=== PATIENT | female | born 1965 | race Caucasian/White ===

== ENCOUNTER 2016-07-29 06:40 | Emergency (ER) | payer MEDICAID, OTHER ==
[~2016-07-29] VITALS: Ht 160 cm; Wt 75.0 kg
[2016-07-29 06:50] VITALS: Ht 160 cm; Wt 75.0 kg
[2016-07-29] MEDS ORDERED: NAPR-260 PO (07:22)
--- NOTE | 2016-07-29 07:42 | ERD ---
ER Documentation Chief Complaint Date/Time DATE: 07/29/16 TIME: 07:40 Chief Complaint rt hand and fingers hurting no injuries noted HPI 50-year-old female presents with right fourth and fifth digit pain approximately 1 month. She describes as achy, intermittent and worse at the end of the day. 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 She denies any fevers, chills. No weakness associated. ROS All systems reviewed and are negative except as per history of present illness. Medications Home Meds Active Scripts Naproxen* (Naprosyn*) 500 Mg Tablet, 500 MG PO BID, #60 TAB Prov:BAM MCGEE PA-C 07/29/16 PMhx/Soc Medical and Surgical Hx: pt denies Medical Hx, pt denies Surgical Hx Hx Alcohol Use: No Hx Substance Use: No Hx Tobacco Use: No Physical Exam Vitals Vital Signs Date Time Temp Pulse Resp B/P Pulse Ox O2 Delivery O2 Flow Rate FiO2 07/29/16 06:50 97.7 77 18 129/73 100 Physical Exam General: Well-developed, well-nourished. The patient appears in no acute distress. HEENT: Head is normocephalic, atraumatic. No scleral icterus. Neck: Supple. Nontender. Lungs: Clear to auscultation. Normal air movement. Heart: Regular rate and rhythm. S1 and S2 are normal. No murmurs, gallops, or rubs. Abdomen: Nondistended. Extremities: Right wrist is atraumatic, there are no bony deformities to the radial ulnar aspect, no snuffbox tenderness, radial, ulnar, median nerve intact , radial pulses 2+ bilaterally, capillary refill less than 2 seconds. Full range of motion at DIP, PIP and MCP joint of all digits of the right hand. There is no erythema, warmth. Right elbow is unremarkable. Neurologic: Alert and oriented 3. No focal deficits. Normal speech and gait. Skin: Normal turgor. No rash or lesions. Procedures/MDM ER course: Patient's right hand was placed in a Velcro wrist splint. MDM: 50-year-old female presents with right fourth and fifth digit pain, patient 's pain is localized however she does not have any symptoms at this time. I suspect this is a neuropathy, perhaps ulnar given the location. Patient does have a history of previous carpal tunnel as well. Ulnar neuropathy was considered given the location. She does not show any signs of fracture, infection, cellulitis, tendon injury, neuropraxia. She is advised to take NSAIDs, use a splint, if symptoms do not improve that she may speak to her primary care physician regarding physical therapy. Patient's blood pressure was elevated (>120/80) but appears stable without evidence of hypertension emergency or urgency. The patient was counseled about the risks of hypertension and urged to pursue outpatient monitoring and therapy within a week with their primary care physician. Departure Diagnosis: Primary Impression: Pain of hand Condition: Good Patient Instructions: Neuropathy, Peripheral Referrals: COMMUNITY CLINICS YOU HAVE RECEIVED A MEDICAL SCREENING EXAM AND THE RESULTS INDICATE THAT YOU DO NOT HAVE A CONDITION THAT REQUIRES URGENT TREATMENT IN THE EMERGENCY DEPARTMENT. FURTHER EVALUATION AND TREATMENT OF YOUR CONDITION CAN WAIT UNTIL YOU ARE SEEN IN YOUR DOCTORS OFFICE WITHIN THE NEXT 1-2 DAYS. IT IS YOUR RESPONSIBILITY TO MAKE AN APPOINTMENT FOR FOLOW-UP CARE. IF YOU HAVE A PRIMARY DOCTOR --you should call your primary doctor and schedule an appointment IF YOU DO NOT HAVE A PRIMARY DOCTOR YOU CAN CALL OUR PHYSICIAN REFERRAL HOTLINE AT IF YOU CAN NOT AFFORD TO SEE A PHYSICIAN YOU CAN CHOSE FROM THE FOLLOWING [facility] [address] [facility]. [facility] [address] [facility]. [facility] [address] [facility] [address] [facility] [facility] [address] [facility]. [facility]. [address] [facility]. [facility] YOU HAVE RECEIVED A MEDICAL SCREENING EXAM AND THE RESULTS INDICATE THAT YOU DO NOT HAVE A CONDITION THAT REQUIRES URGENT TREATMENT IN THE EMERGENCY DEPARTMENT. FURTHER EVALUATION AND TREATMENT OF YOUR CONDITION CAN WAIT UNTIL YOU ARE SEEN IN YOUR DOCTORS OFFICE WITHIN THE NEXT 1-2 DAYS. IT IS YOUR RESPONSIBILITY TO MAKE AN APPOINTMENT FOR FOLOW-UP CARE. IF YOU HAVE A PRIMARY DOCTOR --you should call your primary doctor and schedule and appointment IF YOU DO NOT HAVE A PRIMARY DOCTOR YOU CAN CALL OUR PHYSICIAN REFERRAL HOTLINE AT . IF YOU CAN NOT AFFORD TO SEE A PHYSICIAN YOU CAN CHOSE FROM THE FOLLOWING [facility] INSTITUTIONS: [facility] [address] [place] [address] [facility] [address] [place] [address] [facility] + [facility] [address] [place] [address] [facility] Additional Instructions: Call your primary care doctor TOMORROW for an appointment during the next 1-2 days.See the doctor sooner or return here if your condition worsens before your appointment time. BAM MCGEE PA-C Jul 29, 2016 07:42
== END 2016-07-29 07:54 | disposition home or self-care (01) ==
LOC: FTE 06:40
DX: M25.531 Pain in right wrist (principal)
CPT/HCPCS: 29125; Z7502

== ENCOUNTER 2017-01-02 22:19 | Emergency (ER) | payer MEDICAID, OTHER ==
[~2017-01-02] VITALS: Ht 170.2 cm; Wt 91.0 kg
[~2017-01-02 22:19] MED LIST: NAPR-260 PO
[2017-01-02 22:22] VITALS: Ht 170.2 cm; Wt 91.0 kg
[2017-01-02] MEDS ORDERED: BACITUD TOP (22:43)
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
[2017-01-02] MEDS ORDERED: IBUP-1542 PO (22:44)
== END 2017-01-02 23:09 | disposition home or self-care (01) ==
LOC: FTE 22:19
DX: T24.112A Burn of first degree of left thigh, initial encounter (principal); I10 Essential (primary) hypertension; X10.0XXA Contact with hot drinks, initial encounter; Y92.511 Restaurant or cafe as the place of occurrence of the external cause
CPT/HCPCS: 99283